=== PATIENT | female | born 1975 ===

== ENCOUNTER 2021-04-09 07:56 | Emergency (ER) | payer MEDICAID, OTHER ==
[~2021-04-09] VITALS: Ht 165.1 cm; Wt 93.0 kg
[2021-04-09 08:07] VITALS: BP 129/66
[2021-04-09] MEDS ORDERED: diphenhdrAMINE HCL 50 MG/1 ML VL IM ONE (08:30)
[2021-04-09] MEDS ORDERED: methylPREDNISolone SOD SUCC 125 MG/2 ML VL IM ONE (08:30)
== END 2021-04-09 08:40 | disposition home or self-care (01) ==
LOC: ER 07:56
DX: T78.40XA Allergy, unspecified, initial encounter (principal); E11.9 Type 2 diabetes mellitus without complications; Z91.013 Allergy to seafood; Y92.89 Other specified places as the place of occurrence of the external cause
CPT/HCPCS: 96372; 99284; J1200; J2930